=== PATIENT | female | born 1955 | race Two or more races ===

== ENCOUNTER 2023-05-26 15:58 | Inpatient (IN) | payer MEDICAID, OTHER ==
[~2023-05-26] VITALS: Ht 160 cm; Wt 55.5 kg
[2023-05-26 16:38] LABS: Basophils # (auto) 0 10 ^3/uL (0-0.2); Eosinophils # (auto) 0 10 ^3/uL (0-0.8); Eosinophils % (auto) 0.9 % (0.0-7.0); Hemoglobin 8.2 g/dL (12.2-16.2); Monocytes # (auto) 0.3 10 ^3/uL (0-1.3); Neutrophils # (auto) 2.1 10 ^3/uL (1.6-8.6); Nucleated Red Blood Cells % 0.1 %; White Blood Cell 2.8 10^3/uL (4.4-10.8)
[2023-05-26 16:40] LABS: Basophils % (auto) 0.4 % (0.0-2.0); Lymphocytes # (auto) 0.3 10 ^3/uL (0.4-5.4); Lymphocytes % (auto) 12.3 % (10.0-50.0); Mean Corpuscular Hemoglobin 29.7 pg (28.0-32.0); Mean Corpuscular Hgb Conc. 32.7 g/dL (32.0-36.0); Mean Corpuscular Volume 90.9 fL (80.0-100.0); Neutrophils % (auto) 76.4 % (37.0-80.0); Red Blood Cells 2.75 10^6/uL (4.0-5.20); Red Cell Distribution Width 16.9 % (11.8-14.3)
[2023-05-26 16:57] LABS: Alanine Aminotransferase 51 U/L (7-40); Albumin 3.8 g/dL (3.2-4.8); Alkaline Phosphatase 373 U/L (46-116); Anion Gap 7 (5-15); Aspartate Aminotransferase 35 U/L (13-40); BUN/Creatinine Ratio 29.1 (10.0-20.0); Blood Urea Nitrogen 58 mg/dL (9-23); Carbon Dioxide 21 mmol/L (20-30); Chloride 104 mmol/L (98-107); Glucose 317 mg/dL (74-106); Potassium 5.5 mmol/L (3.5-5.1); Sodium 132 mmol/L (136-145)
[2023-05-26 16:58] LABS: Bilirubin, Total 0.4 mg/dL (0.2-1.0); Total Protein 7.4 g/dL (5.7-8.2)
[2023-05-26] MEDS ORDERED: SODIUM BICARBONATE 8.4 % INJ 50ML VIAL IV ONE (18:30)
[2023-05-26] MEDS ORDERED: CALCIUM GLUC 1,000mg/50ml-NS 50 ML IV ONE (18:30)
[2023-05-26] MEDS ORDERED: SERT-160 PO (19:28)
[2023-05-26] MEDS ORDERED: CARV25TA55 PO (19:28)
[2023-05-26] MEDS ORDERED: LOSA100T58 PO (19:28)
[2023-05-26] MEDS ORDERED: OLAN1TAB7 PO (19:28)
[2023-05-26] MEDS ORDERED: SPIR100T4 PO (19:28)
[2023-05-26] MEDS ORDERED: FUR20T PO (19:28)
[2023-05-26] MEDS ORDERED: NITROGLYCERIN 0.4 MG SL TAB SL PRN (19:30)
[2023-05-26] MEDS ORDERED: MORPHINE SULFATE INJ 2 MG/ml SYRG IV PRN (19:30)
[2023-05-26] MEDS ORDERED: DEXTROSE (50%) 50ML SYRG IV PRN (19:30)
[2023-05-26] MEDS ORDERED: ONDANSETRON HCL 4 MG/2 ML VIAL IV PRN (19:30)
[2023-05-26] MEDS ORDERED: ACETAMINOPHEN 325 MG TAB PO PRN (19:30)
[2023-05-26] MEDS ORDERED: DOCUSATE SOD 100 MG CAP PO PRN (19:30)
[2023-05-26] MEDS ORDERED: HYDROmorphone HCL 2 MG/ML VL/or syr IV PRN (20:00)
[2023-05-26 20:15] VITALS: PULSE 52; RESP 18; O2SAT 99
[2023-05-26] MEDS: ACCU-CHEK COMFORT CURVE STRIP VI SCH (22:00)
[2023-05-26] MEDS: CARVEDILOL 12.5 MG TAB PO SCH (22:00)
[2023-05-26] MEDS: OLANZapine 5 MG TAB PO SCH (22:00)
[2023-05-26] MEDS: InsuLIN REG 1unit/0.01ml Soln (100units/ml) SC SCH (22:00)
[2023-05-27] MEDS: ACCU-CHEK COMFORT CURVE STRIP VI SCH ×4 (06:51→21:23)
[2023-05-27] MEDS: InsuLIN REG 1unit/0.01ml Soln (100units/ml) SC SCH ×4 (06:51→22:00)
[2023-05-27 07:48] LABS: Alanine Aminotransferase 47 U/L (7-40); Alkaline Phosphatase 351 U/L (46-116); Anion Gap 8 (5-15); Aspartate Aminotransferase 40 U/L (13-40); BUN/Creatinine Ratio 20.6 (10.0-20.0); Basophils # (auto) 0 10 ^3/uL (0-0.2); Basophils % (auto) 0.4 % (0.0-2.0); Blood Urea Nitrogen 52 mg/dL (9-23); Calcium 9.4 mg/dL (8.5-10.1); Carbon Dioxide 20 mmol/L (20-30); Chloride 106 mmol/L (98-107); Eosinophils # (auto) 0.1 10 ^3/uL (0-0.8); Eosinophils % (auto) 2.9 % (0.0-7.0); Glucose 59 mg/dL (74-106); Hematocrit 26.3 % (36.0-46.0); Hemoglobin 8.5 g/dL (12.2-16.2); Lymphocytes # (auto) 0.5 10 ^3/uL (0.4-5.4); Lymphocytes % (auto) 14.4 % (10.0-50.0); Mean Corpuscular Hemoglobin 29.9 pg (28.0-32.0); Mean Corpuscular Hgb Conc. 32.2 g/dL (32.0-36.0); Mean Corpuscular Volume 92.8 fL (80.0-100.0); Monocytes # (auto) 0.3 10 ^3/uL (0-1.3); Monocytes % (auto) 9.5 % (0.0-12.0); Neutrophils # (auto) 2.4 10 ^3/uL (1.6-8.6); Neutrophils % (auto) 72.8 % (37.0-80.0); Nucleated Red Blood Cells % 0.2 %; Potassium 5.5 mmol/L (3.5-5.1); Red Blood Cells 2.84 10^6/uL (4.0-5.20); Red Cell Distribution Width 17.3 % (11.8-14.3); Sodium 134 mmol/L (136-145); White Blood Cell 3.2 10^3/uL (4.4-10.8)
[2023-05-27 07:49] LABS: Albumin 3.8 g/dL (3.2-4.8)
[2023-05-27 07:50] LABS: Bilirubin, Total 0.3 mg/dL (0.2-1.0); Total Protein 7.5 g/dL (5.7-8.2)
[2023-05-27] MEDS: ALBUMIN 25% 50 ML IV ONE ×2 (09:54→15:36)
[2023-05-27] MEDS ORDERED: amLODIPine BESYLATE 5 MG TAB PO SCH (10:00)
[2023-05-27] MEDS: CARVEDILOL 12.5 MG TAB PO SCH ×2 (10:00→21:23)
[2023-05-27] MEDS: SERTRALINE HCL 50 MG TAB PO SCH (11:29)
[2023-05-27] MEDS: SODIUM ZIRCONIUM CYCL 10 GM PAK PO SCH ×2 (15:35→21:24)
[2023-05-27] MEDS ORDERED: ALBUMIN 25% 50 ML IV ONE (15:35)
[2023-05-27] MEDS: FUROSEMIDE 20 MG/2 ML VIAL IV SCH (15:36)
[2023-05-27] MEDS ORDERED: FUR20T (17:07)
[2023-05-27] MEDS ORDERED: SERT-160 PO (17:07)
[2023-05-27] MEDS ORDERED: OLAN1TAB7 PO (17:07)
[2023-05-27] MEDS ORDERED: CARV25TA PO (17:07)
[2023-05-27] MEDS ORDERED: SPIR100T4 PO (17:07)
[2023-05-27] MEDS ORDERED: LOSA100T58 PO (17:07)
[2023-05-27 17:20] VITALS: BP 109/65; PULSE 62; RESP 20; TEMP 97.9; O2SAT 97
[2023-05-27 17:30] VITALS: BP_SYST 109; BP_SYST 117; BP_DIAS 50; BP_DIAS 65; PULSE 62; RESP 20; TEMP 97.9; O2SAT 97
[2023-05-27 18:20] LABS: Urine Bacteria NONE SEEN /hpf (None Seen); Urine Blood Negative /uL (Negative); Urine Clarity Clear (Clear); Urine Color Colorless (Yellow); Urine Hyaline Cast FEW /lpf (0 - 2); Urine Protein, UAD Negative (Negative); Urine Specific Gravity 1.008 (1.001-1.035); Urine Urobilinogen Normal (Negative); Urine WBC 1 /hpf (0 - 5); Urine pH 5.5 (5.0-8.0)
[2023-05-27 20:00] VITALS: PULSE 60; PULSE 68; RESP 16; O2SAT 99
[2023-05-27] MEDS: OLANZapine 5 MG TAB PO SCH (21:23)
[2023-05-28 05:23] VITALS: BP 126/49; PULSE 64; RESP 16; TEMP 99.8; O2SAT 99
[2023-05-28 06:22] LABS: Anion Gap 5 (5-15); Carbon Dioxide 23 mmol/L (20-30); Chloride 105 mmol/L (98-107); Sodium 133 mmol/L (136-145)
[2023-05-28 06:23] LABS: Calcium 8.3 mg/dL (8.7-10.4)
[2023-05-28] MEDS: ACCU-CHEK COMFORT CURVE STRIP VI SCH ×4 (06:24→21:57)
[2023-05-28 06:28] LABS: BUN/Creatinine Ratio 30.6 (10.0-20.0); Glucose 198 mg/dL (74-106)
[2023-05-28] MEDS: InsuLIN REG 1unit/0.01ml Soln (100units/ml) SC SCH ×5 (06:41→22:32)
[2023-05-28 06:50] LABS: Blood Urea Nitrogen 85 mg/dL (9-23)
[2023-05-28 06:51] LABS: Potassium 6.1 mmol/L (3.5-5.1)
[2023-05-28] MEDS: SODIUM ZIRCONIUM CYCL 10 GM PAK PO SCH ×3 (07:00→21:55)
[2023-05-28] MEDS ORDERED: InsuLIN REG 1unit/0.01ml Soln (100units/ml) IV ONE (07:45)
[2023-05-28] MEDS ORDERED: SODIUM BICARBONATE 8.4% INJ 50ML SYRINGE IV ONE (07:45)
[2023-05-28] MEDS ORDERED: CALCIUM GLUC 1,000mg/50ml-NS 50 ML IV ONE (07:45)
[2023-05-28] MEDS ORDERED: DEXTROSE (50%) 50ML SYRG IV ONE (07:45)
[2023-05-28 09:00] VITALS: BP 109/50; PULSE 60; RESP 18; TEMP 99; O2SAT 96
[2023-05-28] MEDS: CARVEDILOL 12.5 MG TAB PO SCH ×2 (10:00→21:57)
[2023-05-28] MEDS: FUROSEMIDE 20 MG/2 ML VIAL IV SCH (10:30)
[2023-05-28] MEDS: SERTRALINE HCL 50 MG TAB PO SCH (10:30)
[2023-05-28] MEDS: SODIUM BICARBONATE 50ML VIAL 150 ML in D5W 5% 1,000 ML IV SCH ×2 (12:38→16:06)
[2023-05-28 13:00] VITALS: BP 98/40; PULSE 58; RESP 16; TEMP 99.2; O2SAT 97
[2023-05-28] MEDS ORDERED: SODIUM BICARBONATE 650 MG TAB PO SCH (14:00)
[2023-05-28 17:00] VITALS: BP 98/43; PULSE 66; RESP 20; TEMP 98.8; O2SAT 98
[2023-05-28 20:00] VITALS: PULSE 66
[2023-05-28] MEDS: OLANZapine 5 MG TAB PO SCH (21:55)
[2023-05-28] MEDS: HYDROmorphone HCL 2 MG/ML VL/or syr IV PRN (21:58)
[2023-05-28 22:00] VITALS: BP 118/51; PULSE 77; RESP 16; TEMP 98.5; O2SAT 97
[2023-05-29] VITALS (7 sets, daily range): BP systolic 103–126; BP diastolic 40–55; PULSE 59–88; RESP 14–18; TEMP 97.9–99.2; O2SAT 95–97
[2023-05-29] MEDS: SODIUM BICARBONATE 50ML VIAL 150 ML in D5W 5% 1,000 ML IV SCH ×2 (04:55→23:47)
[2023-05-29] MEDS: SODIUM ZIRCONIUM CYCL 10 GM PAK PO SCH (05:06)
[2023-05-29] MEDS: ACCU-CHEK COMFORT CURVE STRIP VI SCH ×4 (06:15→22:20)
[2023-05-29] MEDS: InsuLIN REG 1unit/0.01ml Soln (100units/ml) SC SCH ×4 (06:35→22:22)
[2023-05-29] MEDS: HYDROmorphone HCL 2 MG/ML VL/or syr IV PRN ×2 (07:45→18:02)
[2023-05-29] MEDS: SERTRALINE HCL 50 MG TAB PO SCH (10:31)
[2023-05-29] MEDS: FUROSEMIDE 20 MG/2 ML VIAL IV SCH (10:33)
[2023-05-29] MEDS: CARVEDILOL 12.5 MG TAB PO SCH ×2 (10:33→22:20)
[2023-05-29 10:37] LABS: Chloride 101 mmol/L (98-107); Potassium 3.8 mmol/L (3.5-5.1); Sodium 136 mmol/L (136-145)
[2023-05-29 10:38] LABS: Anion Gap 8 (5-15); Calcium 8.2 mg/dL (8.5-10.1); Carbon Dioxide 27 mmol/L (20-30)
[2023-05-29 10:43] LABS: BUN/Creatinine Ratio 38.4 (10.0-20.0); Glucose 276 mg/dL (74-106)
[2023-05-29 10:46] LABS: Blood Urea Nitrogen 73 mg/dL (9-23)
[2023-05-29] MEDS: OLANZapine 5 MG TAB PO SCH (22:20)
[2023-05-30] VITALS (10 sets, daily range): BP systolic 106–146; BP diastolic 35–70; PULSE 48–66; RESP 16–18; TEMP 97.8–99.3; O2SAT 91–99
[2023-05-30 05:06] LABS: Hematocrit 20.3 % (36.0-46.0); Mean Corpuscular Hemoglobin 30.1 pg (28.0-32.0); Mean Corpuscular Hgb Conc. 33.7 g/dL (32.0-36.0); Mean Corpuscular Volume 89.3 fL (80.0-100.0); Red Blood Cells 2.27 10^6/uL (4.0-5.20); Red Cell Distribution Width 16.7 % (11.8-14.3)
[2023-05-30 05:13] LABS: White Blood Cell 1.3 10^3/uL (4.4-10.8)
[2023-05-30 05:14] LABS: Chloride 105 mmol/L (98-107); Hemoglobin 6.8 g/dL (12.2-16.2); Potassium 4.1 mmol/L (3.5-5.1); Sodium 139 mmol/L (136-145)
[2023-05-30 05:15] LABS: Anion Gap 6 (5-15); Calcium 8.1 mg/dL (8.7-10.4); Carbon Dioxide 28 mmol/L (20-30)
[2023-05-30 05:20] LABS: BUN/Creatinine Ratio 37.1 (10.0-20.0); Glucose 141 mg/dL (74-106)
[2023-05-30 05:27] LABS: Blood Urea Nitrogen 62 mg/dL (9-23)
[2023-05-30] MEDS: ACCU-CHEK COMFORT CURVE STRIP VI SCH ×4 (06:29→21:53)
[2023-05-30] MEDS: InsuLIN REG 1unit/0.01ml Soln (100units/ml) SC SCH ×4 (06:29→22:32)
[2023-05-30 06:30] LABS: Band Neutrophils % (manual) 0; Basophils % (manual) 0 (0.0-2.0); Blast Cells 0; Metamyelocytes % 0; Myelocytes % 0; Promyelocytes % 0; Reactive Lymphocytes 0
[2023-05-30 06:34] LABS: Eosinophils % (manual) 1 (0-7); Lymphocytes % (manual) 22 (10.0-50.0); Monocytes % (manual) 11 (0-12); Platelet Estimate Decreased
[2023-05-30 06:35] LABS: Stomatocytes Few
[2023-05-30] MEDS: FUROSEMIDE 20 MG/2 ML VIAL IV SCH (09:48)
[2023-05-30] MEDS: SERTRALINE HCL 50 MG TAB PO SCH (09:48)
[2023-05-30] MEDS: CARVEDILOL 12.5 MG TAB PO SCH ×2 (09:49→22:32)
[2023-05-30] MEDS: SODIUM BICARBONATE 50ML VIAL 150 ML in D5W 5% 1,000 ML IV SCH (16:39)
[2023-05-30] MEDS: OLANZapine 5 MG TAB PO SCH (22:32)
[2023-05-31 05:38] VITALS: BP 142/56; PULSE 57; RESP 18; TEMP 98.8; O2SAT 98
[2023-05-31 06:12] LABS: Hemoglobin 8.6 g/dL (12.2-16.2); Mean Corpuscular Hemoglobin 29.7 pg (28.0-32.0); Mean Corpuscular Volume 88.1 fL (80.0-100.0)
[2023-05-31 06:16] LABS: Hematocrit 25.6 % (36.0-46.0); Mean Corpuscular Hgb Conc. 33.7 g/dL (32.0-36.0); Red Cell Distribution Width 16.8 % (11.8-14.3)
[2023-05-31 06:25] LABS: Chloride 105 mmol/L (98-107); Potassium 4.2 mmol/L (3.5-5.1); Sodium 139 mmol/L (136-145)
[2023-05-31 06:26] LABS: Anion Gap 9 (5-15); Carbon Dioxide 25 mmol/L (20-30)
[2023-05-31 06:27] LABS: Calcium 8.7 mg/dL (8.5-10.1)
[2023-05-31 06:28] LABS: White Blood Cell 1.5 10^3/uL (4.4-10.8)
[2023-05-31 06:29] LABS: Band Neutrophils % (manual) 0; Basophils % (manual) 0 (0.0-2.0); Blast Cells 0; Metamyelocytes % 0; Myelocytes % 0; Promyelocytes % 0; Reactive Lymphocytes 0
[2023-05-31 06:31] LABS: Glucose 143 mg/dL (74-106)
[2023-05-31 06:33] LABS: Blood Urea Nitrogen 43 mg/dL (9-23)
[2023-05-31] MEDS: ACCU-CHEK COMFORT CURVE STRIP VI SCH ×3 (06:49→17:02)
[2023-05-31] MEDS: InsuLIN REG 1unit/0.01ml Soln (100units/ml) SC SCH ×3 (06:50→17:19)
[2023-05-31 08:00] VITALS: BP 147/53; PULSE 56; RESP 16; TEMP 98.5; O2SAT 98
[2023-05-31] MEDS: HYDROmorphone HCL 2 MG/ML VL/or syr IV PRN (08:49)
[2023-05-31] MEDS ORDERED: EPOETIN ALFA-EPBX 4,000 UNIT/ML VIAL SC ONE (10:00)
[2023-05-31] MEDS: SERTRALINE HCL 50 MG TAB PO SCH (10:14)
[2023-05-31] MEDS: FUROSEMIDE 20 MG/2 ML VIAL IV SCH (10:16)
[2023-05-31] MEDS: CARVEDILOL 12.5 MG TAB PO SCH (10:16)
[2023-05-31 12:00] VITALS: BP 131/57; PULSE 59; RESP 16; TEMP 98.6; O2SAT 98
[2023-05-31 13:42] LABS: Eosinophils % (manual) 2 (0-7); Lymphocytes % (manual) 9 (10.0-50.0); Monocytes % (manual) 5 (0-12)
[2023-05-31 13:43] LABS: Platelet Estimate Decreased
[2023-05-31] MEDS: SODIUM BICARBONATE 50ML VIAL 150 ML in D5W 5% 1,000 ML IV SCH (14:25)
[2023-05-31 15:55] VITALS: BP 131/57; PULSE 59; RESP 16; TEMP 98.6; O2SAT 98
[2023-05-31 16:50] VITALS: BP 127/54; PULSE 63; RESP 16; TEMP 98.2; O2SAT 99
== END 2023-05-31 17:20 | disposition home or self-care (01) | DRG 425 ==
LOC: ER 15:58 → TELE 19:23 → TELE-EAST 05-27 15:14 → TELE-E-ADS 05-27 16:12 → TELE-EAST 05-27 18:16
PROVIDERS: ADMIT Nurse Practitioner Family; ATTEND Internal Medicine
PROC: 30233N1 Transfusion of Nonautologous Red Blood Cells into Peripheral Vein, Percutaneous Approach (ICD-10-PCS; principal; 2023-05-30)
DX: E87.5 Hyperkalemia (principal); N17.0 Acute kidney failure with tubular necrosis; K76.7 Hepatorenal syndrome; C22.9 Malignant neoplasm of liver, not specified as primary or secondary; D61.818 Other pancytopenia; K74.60 Unspecified cirrhosis of liver; E11.22 Type 2 diabetes mellitus with diabetic chronic kidney disease; E87.1 Hypo-osmolality and hyponatremia; E78.5 Hyperlipidemia, unspecified; E11.65 Type 2 diabetes mellitus with hyperglycemia; I12.9 Hypertensive chronic kidney disease with stage 1 through stage 4 chronic kidney disease, or unspecified chronic kidney disease; N18.9 Chronic kidney disease, unspecified; Z80.0 Family history of malignant neoplasm of digestive organs; Z82.49 Family history of ischemic heart disease and other diseases of the circulatory system; Z92.21 Personal history of antineoplastic chemotherapy; Z85.05 Personal history of malignant neoplasm of liver; Z92.3 Personal history of irradiation
CPT/HCPCS: 36415; 70450; 76700; 80048; 80053; 81001; 82962; 84132; 84300; 84484; 85007; 85025; 85027; 86850; 86900; 86901; 86920; 87081; 93005; 97163; G0378; J1815